=== PATIENT | female | born 1965 | race Caucasian/White ===

== ENCOUNTER 2019-03-17 09:48 | Emergency (ER) | payer BC ==
[~2019-03-17] VITALS: Ht 167.6 cm; Wt 54.4 kg
[~2019-03-17 09:48] MED LIST: CIPRO500 MG PO; FLUOXETINE HCL20 MG PO; PHENYTOIN SODI100 MG PO
[2019-03-17] MEDS ORDERED: KEPPRA500 MG PO (10:02)
--- NOTE | 2019-03-18 11:07 | EKG ---
[facility] [address] [facility] [place] [address] Signed Sinus bradycardia Possible Left atrial enlargement Incomplete right bundle branch block Nonspecific ST abnormality Abnormal ECG When compared with ECG of 24-JUL-2018 10:35, Vent. rate has decreased BY 29 BPM Confirmed by JAMAAL HAMILTON DO ([id number]) on 03/18/2019 11:07:38 AM Electronically Signed By: JAMAAL HAMILTON DO 03/18/19 1107 PATIENT NAME: NOHEMI TAFOYA Electrocardiogram DATE OF : 61 PHYSICIAN: JAMAAL HAMILTON DO REPORT #: [id number] REPORT IS CONFIDENTIAL AND NOT TO BE RELEASED WITHOUT AUTHORIZATION
== END 2019-03-17 11:05 | disposition home or self-care (01) ==
LOC: ED 09:48
DX: R55 Syncope and collapse (principal); Z88.2 Allergy status to sulfonamides; Z79.899 Other long term (current) drug therapy
CPT/HCPCS: 80053; 81001; 85025; 93005; 93010; 99284-25; J7030

== ENCOUNTER 2020-02-26 11:37 | Emergency (ER) | payer OTHER, BC ==
[~2020-02-26] VITALS: Ht 167.6 cm; Wt 59.9 kg
[~2020-02-26 11:37] MED LIST changes: +KEPPRA500 MG PO
[2020-02-26] MEDS ORDERED: ZYRTEC10 M3 PO (12:16)
[2020-02-26] MEDS ORDERED: ESCITALOPRAM OXA5 MG PO (12:16)
[2020-02-26] MEDS ORDERED: LEXAPRO5 MG PO (12:17)
[2020-02-26] MEDS ORDERED: HYDROCODON-ACE1 EA11 PO (14:11)
== END 2020-02-26 14:35 | disposition home or self-care (01) ==
LOC: ED 11:37
DX: S42.201A Unspecified fracture of upper end of right humerus, initial encounter for closed fracture (principal); W18.09XA Striking against other object with subsequent fall, initial encounter; Y99.0 Civilian activity done for income or pay; Z88.2 Allergy status to sulfonamides; Z79.899 Other long term (current) drug therapy
CPT/HCPCS: 73030; 99283-25

== ENCOUNTER 2023-01-18 17:54 | Emergency (ER) | payer OTHER, BC ==
[~2023-01-18] VITALS: Ht 167.6 cm; Wt 52.3 kg
[~2023-01-18 17:54] MED LIST changes: +ESCITALOPRAM OXA5 MG PO; +HYDROCODON-ACE1 EA11 PO; +LEXAPRO5 MG PO; +ZYRTEC10 M3 PO
[2023-01-18] MEDS ORDERED: FLUOXETINE HCL20 MG PO (18:06)
[2023-01-18] MEDS ORDERED: ALENDRONATE SOD70 MG PO (18:06)
[2023-01-18] MEDS ORDERED: HYDROCODON-ACE1 EA10 PO (18:23)
[2023-01-18] MEDS ORDERED: ONDANSETRON ODT4 MG PO (18:23)
[2023-01-18 19:23] VITALS: BP 94/57
== END 2023-01-18 19:23 | disposition home or self-care (01) ==
LOC: ED 17:54
DX: S52.501A Unspecified fracture of the lower end of right radius, initial encounter for closed fracture (principal); S52.614A Nondisplaced fracture of right ulna styloid process, initial encounter for closed fracture; W18.30XA Fall on same level, unspecified, initial encounter; Z88.2 Allergy status to sulfonamides; Z79.899 Other long term (current) drug therapy
CPT/HCPCS: 29125; 73090; 73110; 99283-25; A9270

== ENCOUNTER 2023-01-21 06:55 | Day surgery (SDC) | payer OTHER, BC ==
[~2023-01-21] VITALS: Ht 167.6 cm; Wt 54.0 kg
[~2023-01-21 06:55] MED LIST changes: +ALENDRONATE SOD70 MG PO; +HYDROCODON-ACE1 EA10 PO; +ONDANSETRON ODT4 MG PO
[2023-01-21 07:14] VITALS: BP 113/62
--- NOTE | 2023-01-21 07:15 | NUR ---
DS ROUNDS. NURSING STAFF IN WITH PT. UNABLE TO VISIT. PROVIDED PRAYER.
[2023-01-21] MEDS ORDERED: HYDROCODON-ACE1 EA11 PO (09:28)
--- NOTE | 2023-01-21 09:36 | NUR ---
01/21/23 0936 [place],April 0924 PT ARRIVED TO PACU ON 6L VIA MASK WITH ORAL AIRWAY IN PLACE. RESP EVEN AND UNLABORED. RIGHT ARM PLACED ON PILLOW. 0932 PT WOKE TO TACTILE STIMULI AND ORAL AIRWAY AND MASK REMOVED. PT DENIES PAIN AND NAUSEA AND IS REORIENTED TO PACU. 0934 PT EASILY FALLS BACK TO SLEEP. O2 SAT 97%.
[2023-01-21 09:57] VITALS: BP 104/54
--- NOTE | 2023-01-21 10:04 | NUR ---
PT ARRIVES BACK TO DAY SURGERY ROOM #5 DROWSY. PT REPORTS NO PAIN OR NAUSEA. PT CAN LIFT HER RIGHT HAND BUT DOES NOT HAVE GOOD CONTROL OVER THE MOVEMENT. PT PROVIDED ICE WATER, CRACKERS, AND JELL-O. PT HAS NO FURTHER REQUESTS AT THIS TIME. BED IN THE LOWEST POSITION, BED RAIL UP X1, CALL LIGHT PROVIDED, PT'S SIGNIFICANT OTHER AT THE BEDSIDE.
[2023-01-21 10:51] VITALS: BP 118/64
--- NOTE | 2023-01-21 11:40 | NUR ---
1040-PATIENT UP TO SIDE OF BED. SLING PLACED ON R ARM. PATIENT AMBULATES TO THE BATHROOM. GAIT STEADY AND TOLERATED WELL. PAITNET VOIDED 200ML OF YELLOW URINE. 1050-PATIENT BACKT OR ROOM. SITTING ON SIDE OF BED.
--- NOTE | 2023-01-21 11:42 | NUR ---
1051-PATIENT IS DRESSSIG WAS CLEAN, DRY, AND INTACT. RIGHT ARM IN SLING AND ICE PACK IN PLACE. PATIENT IS READY TO GET DRESSED. IN ROOM TO HELP.
--- NOTE | 2023-01-21 11:44 | NUR ---
1125-WENT OVER DISCHARGE INSTRUCTIONS WITH PATIENT AND HER . ALL QUESTIONS ANSWERED. PATIENT DENIES PAIN. PATIENT WALKS TO WHEELCHAIR. TOLERATED WELL. RIDE PROVIDED TO FRONT OF HOSPITAL WHERE HER RIDE WAS WAITING WITH THE CAR.
--- NOTE | 2023-01-22 09:25 | OR ---
[facility] [address] [place] [address] Signed DATE OF OPERATION: 01/21/2023 SURGEON: Tracy Wilson MD PREOPERATIVE DIAGNOSIS: Distal radius fracture displaced, right. POSTOPERATIVE DIAGNOSIS: Distal radius fracture displaced, right. PROCEDURE PERFORMED: Open reduction and internal fixation, right distal radius. STRIKE OUT MACHINE OPERATOR: None. ANESTHESIA: General. TOURNIQUET TIME: 34 minutes. IMPLANTS: Bear distal radius plate medium with six screws. BRIEF HISTORY: Sukhdeep is a 57-year-old female, who suffered a ground level fall at work after syncopal episode. She had immediate pain in her wrist and was seen in the ER where radiographs showed a distal radius fracture that was dorsally displaced. Risks and benefits of operative treatment were discussed with her and she elected to proceed. DESCRIPTION OF PROCEDURE: Once consent was obtained, she was taken to the operating room. After adequate anesthesia, she was placed on the operating room table. All downside pressure points were well padded. The right arm was placed in well-padded proximal arm tourniquet. The arm was prepped and draped in a standard sterile fashion. The arm was exsanguinated using Esmarch bandage. Tourniquet inflated to 200 mmHg. A standard volar approach to the distal radius was undertaken through the skin and subcutaneous tissue. The flexor carpi radialis was then identified, retracted and protected. The dissection was taken down to the pronator, which was then split and elevated off the volar aspect of the Electronically Signed By: TRACY WILSON MD 01/22/23 0925 PATIENT NAME: SUKHDEEP TAFOYA OPERATIVE REPORT DATE OF : 61 REPORT #: [id number] PHYSICIAN: TRACY WILSON MD PCP: DAVID MONTGOMERY MD REPORT IS CONFIDENTIAL AND NOT TO BE RELEASED WITHOUT AUTHORIZATION [facility] [address] [place], [place] [address] Signed distal radius. Once this was completed, the fracture was identified. Using the Yoder as a . The fracture was reduced and held in position and checked using image intensifier and found to be good. The medium distal radius plate was then placed on the distal radius volar surface. This was then centered using image intensifier and a single screw was placed in the slot. It was then adjusted so that it was well aligned. The screw was then tightened. The four distal screws were then placed again under image intensifier guidance. Fairly decent bone capture was obtained. Another screw was then placed in the proximal end of the plate. Final radiographs showed good plate placement and alignment, screw lengths were good and the alignment of the distal radius was good. The wound was then copiously irrigated with normal saline. The pronator was then closed back over the plate followed by the floor of the FCR sheath. Subcutaneous tissue was then closed with 3-0 Monocryl followed by 3-0 Stratafix. The wound was then sealed with LiquiBand and Steri-Strips. The wound was dressed with Allevyn dressing. Sterile gauze and a radial gutter splint. She tolerated the procedure well. All sponge, needle, and instrument counts were correct. Tracy Wilson MD BA/MODL /[id number] Copies: ~ Electronically Signed By: TRACY WILSON MD 01/22/23 0925 PATIENT NAME: SUKHDEEP TAFOYA OPERATIVE REPORT DATE OF : 61 REPORT #: [id number] PHYSICIAN: TRACY WILSON MD PCP: DAVID MONTGOMERY MD REPORT IS CONFIDENTIAL AND NOT TO BE RELEASED WITHOUT AUTHORIZATION
== END 2023-01-21 11:25 | disposition home or self-care (01) ==
LOC: DS 06:55
PROVIDERS: ATTEND Specialist
PROC: 3E0T3BZ Introduction of Anesthetic Agent into Peripheral Nerves and Plexi, Percutaneous Approach (ICD-10-PCS; 2023-01-21)
PROC: 0PSH04Z Reposition Right Radius with Internal Fixation Device, Open Approach (ICD-10-PCS; principal; 2023-01-21 09:15)
DX: S52.501A Unspecified fracture of the lower end of right radius, initial encounter for closed fracture (principal); Z88.2 Allergy status to sulfonamides; R56.9 Unspecified convulsions; W18.30XA Fall on same level, unspecified, initial encounter
CPT/HCPCS: 01830; 64417; 73100; 73110; C1713; J0690; J1100; J2001; J2250; J2704; J2795; J7121